=== PATIENT | male | born 1945 | race Caucasian/White ===

== ENCOUNTER → 2019-09-10 | Outpatient (CLI) | payer MEDICARE, BC ==
[2019-09-10 09:04] LABS: ALBUMIN 3.9 g/dL (3.4-4.8); POTASSIUM 4.4 mmol/L (3.5-5.1)
[2019-09-10 09:05] LABS: CALCIUM 9.6 mg/dL (8.3-10.5)
[2019-09-10 09:07] LABS: TOTAL PROTEIN 6.8 g/dL (6.2-8.1)
[2019-09-10 09:09] LABS: TOTAL BILIRUBIN 0.5 mg/dL (0.2-1.2)
== END ==
LOC: LAB 08:38
PROVIDERS: Family Medicine
DX: E11.9 Type 2 diabetes mellitus without complications (principal); I71.9 Aortic aneurysm of unspecified site, without rupture; I10 Essential (primary) hypertension; E78.00 Pure hypercholesterolemia, unspecified

== ENCOUNTER 2019-12-07 09:40 | Emergency (ER) | payer MEDICARE, BC ==
[~2019-12-07] VITALS: Wt 129.8 kg
[2019-12-07] MEDS ORDERED: ATORVASTATIN CA80 MG PO (09:48)
[2019-12-07] MEDS ORDERED: PRILOSEC 20MG20 MG PO (09:48)
[2019-12-07] MEDS ORDERED: CARVEDILOL12.5 MG PO (09:48)
[2019-12-07] MEDS ORDERED: AMLODIPINE BESYL5 MG PO (09:49)
[2019-12-07] MEDS ORDERED: ELIQUIS5 MG PO (09:49)
[2019-12-07] MEDS ORDERED: GLUCOPHAGE PO (09:49)
[2019-12-07 10:05] LABS: EOS # 0.1 (0.04-0.40); EOS % 1.6 % (0.0-4.0); HEMATOCRIT 44.4 % (42.0-52.0); HEMOGLOBIN 14.6 g/dL (13.5-18.0); LYMPH# 1.8 (1.50-4.00); MEAN CELL VOLUME 93 fl (78-100); MEAN CORPUSCULAR HEMOGLOBIN 31 pg (27-31); MEAN CORPUSCULAR HGB CONC 33 g/dL (33-37); MEAN PLATELET VOLUME 11.3 fl (7.4-10.4); MONO # 0.8 (0.20-0.80); NEU # 6.2 (1.40-6.50); PLATELET COUNT 173 K/mm3 (130-400); RED BLOOD COUNT 4.79 M/mm3 (4.20-5.60); RED CELL DISTRIBUTION WIDTH 14.5 % (11.5-14.5)
[2019-12-07 10:12] LABS: ALBUMIN 3.7 g/dL (3.4-4.8); POTASSIUM 3.9 mmol/L (3.5-5.1); SODIUM 139 mmol/L (136-145)
[2019-12-07 10:13] LABS: CALCIUM 9.4 mg/dL (8.3-10.5)
[2019-12-07 10:14] LABS: GLUCOSE 137 mg/dL (75-110); TOTAL PROTEIN 6.6 g/dL (6.2-8.1)
[2019-12-07 10:15] LABS: CARBON DIOXIDE 22 mmol/L (23-31)
[2019-12-07 10:16] LABS: TOTAL BILIRUBIN 0.7 mg/dL (0.2-1.2)
[2019-12-07 10:20] LABS: AST-SGOT 16 U/L (5-34)
[2019-12-07 10:21] LABS: ALT/SGPT 16 U/L (0-55)
[2019-12-07 10:48] LABS: TROPONIN-I < 0.03 ng/mL (<0.030)
[2019-12-07 17:23] LABS: HEMATOCRIT 43.4 % (42.0-52.0); HEMOGLOBIN 14.3 g/dL (13.5-18.0)
[2019-12-07 18:22] VITALS: BP 160/77
== END 2019-12-07 18:21 | disposition home or self-care (01) ==
LOC: ED 09:40
PROVIDERS: Nurse Practitioner Primary Care; Physician Assistant
DX: I95.1 Orthostatic hypotension (principal); E86.0 Dehydration; K92.1 Melena; E11.9 Type 2 diabetes mellitus without complications; I48.92 Unspecified atrial flutter; K21.9 Gastro-esophageal reflux disease without esophagitis; G47.33 Obstructive sleep apnea (adult) (pediatric); Z79.84 Long term (current) use of oral hypoglycemic drugs; Z86.79 Personal history of other diseases of the circulatory system
CPT/HCPCS: J7030

== ENCOUNTER 2020-05-30 06:37 | Emergency (ER) | payer MEDICARE, BC ==
[~2020-05-30] VITALS: Ht 190.5 cm; Wt 125.0 kg
[~2020-05-30 06:37] MED LIST: AMLODIPINE BESYL5 MG PO; ATORVASTATIN CA80 MG PO; CARVEDILOL12.5 MG PO; ELIQUIS5 MG PO; GLUCOPHAGE PO; PRILOSEC 20MG20 MG PO
[2020-05-30 07:37] LABS: HEMATOCRIT 39.4 % (42.0-52.0); HEMOGLOBIN 12.9 g/dL (13.5-18.0); MEAN CELL VOLUME 94 fl (78-100); MEAN CORPUSCULAR HEMOGLOBIN 31 pg (27-31); MEAN CORPUSCULAR HGB CONC 33 g/dL (33-37); MEAN PLATELET VOLUME 11.1 fl (7.4-10.4); PLATELET COUNT 164 K/mm3 (130-400); RED BLOOD COUNT 4.18 M/mm3 (4.20-5.60); RED CELL DISTRIBUTION WIDTH 14.8 % (11.5-14.5); WHITE BLOOD COUNT 8.4 K/mm3 (4.8-10.8)
[2020-05-30 07:43] LABS: ALBUMIN 3.6 g/dL (3.4-4.8)
[2020-05-30 07:44] LABS: POTASSIUM 3.7 mmol/L (3.5-5.1)
[2020-05-30 07:45] LABS: CALCIUM 9.2 mg/dL (8.3-10.5)
[2020-05-30 07:46] LABS: TOTAL PROTEIN 6.3 g/dL (6.2-8.1)
[2020-05-30 07:48] LABS: TOTAL BILIRUBIN 0.9 mg/dL (0.2-1.2)
[2020-05-30 07:54] LABS: LYMPHOCYTE 14 % (20-51); MONOCYTE 14 % (3-10); NEUTROPHILS 70 % (42-75)
[2020-05-30 07:59] LABS: TROPONIN-I 0.04 ng/mL (<0.030)
[2020-05-30 10:39] VITALS: BP 136/96
== END 2020-05-30 10:45 | disposition short-term general hospital (02) ==
LOC: ED 06:37
PROVIDERS: Family Medicine
DX: J93.9 Pneumothorax, unspecified (principal); I25.10 Atherosclerotic heart disease of native coronary artery without angina pectoris; I44.2 Atrioventricular block, complete; E11.9 Type 2 diabetes mellitus without complications; I10 Essential (primary) hypertension; Z79.84 Long term (current) use of oral hypoglycemic drugs; Z95.0 Presence of cardiac pacemaker; Z96.653 Presence of artificial knee joint, bilateral; Z88.0 Allergy status to penicillin; Z88.8 Allergy status to other drugs, medicaments and biological substances
CPT/HCPCS: J1940

== ENCOUNTER 2020-06-15 22:13 | Emergency (ER) | payer MEDICARE, BC ==
[2020-06-15 22:52] LABS: EOS # 0.2 (0.04-0.40); EOS % 2.5 % (0.0-4.0); HEMOGLOBIN 13.9 g/dL (13.5-18.0); LYMPH# 2.1 (1.50-4.00); MEAN CELL VOLUME 95 fl (78-100); MEAN CORPUSCULAR HEMOGLOBIN 31 pg (27-31); MEAN CORPUSCULAR HGB CONC 32 g/dL (33-37); MEAN PLATELET VOLUME 11.3 fl (7.4-10.4); MONO # 0.8 (0.20-0.80); NEU # 4.1 (1.40-6.50); PLATELET COUNT 284 K/mm3 (130-400); RED BLOOD COUNT 4.53 M/mm3 (4.20-5.60); RED CELL DISTRIBUTION WIDTH 14.3 % (11.5-14.5); WHITE BLOOD COUNT 7.2 K/mm3 (4.8-10.8)
[2020-06-15 23:00] LABS: ALBUMIN 3.6 g/dL (3.4-4.8)
[2020-06-15 23:01] LABS: POTASSIUM 3.9 mmol/L (3.5-5.1)
[2020-06-15] MEDS ORDERED: ZESTRIL40 M1 PO (23:01)
[2020-06-15 23:02] LABS: CALCIUM 9.2 mg/dL (8.3-10.5)
[2020-06-15] MEDS ORDERED: TIMOLOL 0.5% OP10 ML OU (23:02)
[2020-06-15 23:03] LABS: TOTAL PROTEIN 6.8 g/dL (6.2-8.1)
[2020-06-15] MEDS ORDERED: FELODIPINE5 MG PO (23:04)
[2020-06-15 23:05] LABS: TOTAL BILIRUBIN 0.3 mg/dL (0.2-1.2)
[2020-06-16 01:04] LABS: URINE COLOR YELLOW
[2020-06-16 01:05] LABS: URINE APPEARANCE CLOUDY; URINE BILIRUBIN NEGATIVE (NEGATIVE); URINE BLOOD 50 ery/uL (NEGATIVE); URINE GLUCOSE NEGATIVE (NEGATIVE); URINE KETONE NEGATIVE (NEGATIVE); URINE LEUKOCYTE ESTERASE 1+ (NEGATIVE); URINE NITRATE NEGATIVE (NEGATIVE); URINE PROTEIN(semi-quant) TRACE mg/dL (NEGATIVE); URINE UROBILINOGEN NORMAL (NORMAL); URINE WBC 31-50 /hpf (0-3)
[2020-06-16] MEDS ORDERED: MACROBID 100 M100 MG PO (01:28)
[2020-06-16 01:36] VITALS: BP 128/82
== END 2020-06-16 01:36 | disposition home or self-care (01) ==
LOC: ED 22:13
PROVIDERS: Family Medicine
DX: I10 Essential (primary) hypertension (principal); N39.0 Urinary tract infection, site not specified; E11.9 Type 2 diabetes mellitus without complications; Z79.84 Long term (current) use of oral hypoglycemic drugs; Z95.0 Presence of cardiac pacemaker; Z96.653 Presence of artificial knee joint, bilateral

== ENCOUNTER → 2020-06-23 | Outpatient (CLI) | payer MEDICARE, BC ==
[2020-06-16 01:36] VITALS: BP 128/82
[~2020-06-23] MED LIST changes: +FELODIPINE5 MG PO; +MACROBID 100 M100 MG PO; +TIMOLOL 0.5% OP10 ML OU; +ZESTRIL40 M1 PO
[2020-06-23 17:08] LABS: URINE APPEARANCE CLEAR; URINE BILIRUBIN NEGATIVE (NEGATIVE); URINE BLOOD 50 ery/uL (NEGATIVE); URINE COLOR LIGHT YELLOW; URINE GLUCOSE NEGATIVE (NEGATIVE); URINE KETONE NEGATIVE (NEGATIVE); URINE LEUKOCYTE ESTERASE 1+ (NEGATIVE); URINE NITRATE NEGATIVE (NEGATIVE); URINE PROTEIN(semi-quant) TRACE mg/dL (NEGATIVE); URINE UROBILINOGEN NORMAL (NORMAL)
== END ==
LOC: LAB 16:25
PROVIDERS: Family Medicine
DX: N39.0 Urinary tract infection, site not specified (principal); R82.89 Other abnormal findings on cytological and histological examination of urine; Z87.442 Personal history of urinary calculi

== ENCOUNTER → 2020-10-17 | Outpatient (CLI) | payer MEDICARE, BC | LOC: LAB 09:10 | DX: Z12.5 Encounter for screening for malignant neoplasm of prostate (principal); R35.1 Nocturia ==

== ENCOUNTER → 2021-03-20 | Day surgery (SDC) | payer MEDICARE, BC | END | disposition home or self-care (01) | LOC: MSO 08:31 | DX: Z12.11 Encounter for screening for malignant neoplasm of colon (principal); K63.5 Polyp of colon; I49.9 Cardiac arrhythmia, unspecified; G47.33 Obstructive sleep apnea (adult) (pediatric); J45.909 Unspecified asthma, uncomplicated; Z95.0 Presence of cardiac pacemaker; K21.9 Gastro-esophageal reflux disease without esophagitis; E11.9 Type 2 diabetes mellitus without complications; E66.9 Obesity, unspecified; I44.7 Left bundle-branch block, unspecified; M19.90 Unspecified osteoarthritis, unspecified site; I48.92 Unspecified atrial flutter; Z79.01 Long term (current) use of anticoagulants; Z79.84 Long term (current) use of oral hypoglycemic drugs; Z79.891 Long term (current) use of opiate analgesic | CPT/HCPCS: 00811; J2704; J7120 ==

== ENCOUNTER → 2021-03-27 | Outpatient (CLI) | payer MEDICARE, BC | LOC: LAB 12:00 | DX: N39.0 Urinary tract infection, site not specified (principal) ==

== ENCOUNTER → 2021-03-30 | Outpatient (CLI) | payer MEDICARE, BC ==
[2021-03-30 11:42] LABS: POTASSIUM 4.2 mmol/L (3.5-5.1)
[2021-03-30 11:44] LABS: CALCIUM 9.3 mg/dL (8.3-10.5)
[2021-03-30 11:45] LABS: TOTAL PROTEIN 6.8 g/dL (6.2-8.1)
[2021-03-30 11:47] LABS: TOTAL BILIRUBIN 0.6 mg/dL (0.2-1.2)
== END ==
LOC: LAB 08:52
PROVIDERS: Family Medicine
DX: Z12.5 Encounter for screening for malignant neoplasm of prostate (principal); E11.9 Type 2 diabetes mellitus without complications; I10 Essential (primary) hypertension

== ENCOUNTER → 2021-07-11 | Outpatient (CLI) | payer MEDICARE, BC | LOC: LAB 17:22 | DX: R31.9 Hematuria, unspecified (principal) ==

== ENCOUNTER → 2021-11-08 | Outpatient (CLI) | payer MEDICARE, BC | LOC: LAB 11:11 | DX: Z20.822 Contact with and (suspected) exposure to COVID-19 (principal) ==

== ENCOUNTER 2022-02-06 08:45 | Outpatient (RCR) | payer MEDICARE, BC | END 2022-03-01 19:36 | disposition home or self-care (01) | LOC: OPPGERO 08:45 | DX: F33.1 Major depressive disorder, recurrent, moderate (principal); F41.8 Other specified anxiety disorders; Z79.899 Other long term (current) drug therapy ==

== ENCOUNTER 2022-03-05 12:17 | Outpatient (RCR) | payer MEDICARE, BC | END 2022-03-30 16:11 | disposition still patient (30) | LOC: OPPGERO 12:17 | DX: F33.9 Major depressive disorder, recurrent, unspecified (principal); I10 Essential (primary) hypertension; E11.9 Type 2 diabetes mellitus without complications; E66.9 Obesity, unspecified; Z96.653 Presence of artificial knee joint, bilateral ==

== ENCOUNTER 2022-04-02 10:14 | Outpatient (RCR) | payer MEDICARE, BC | END 2022-05-01 20:57 | disposition home or self-care (01) | LOC: OPPGERO 10:14 | DX: F33.1 Major depressive disorder, recurrent, moderate (principal); I10 Essential (primary) hypertension; E11.9 Type 2 diabetes mellitus without complications; Z96.651 Presence of right artificial knee joint; Z96.652 Presence of left artificial knee joint ==

== ENCOUNTER → 2022-04-02 | Outpatient (CLI) | payer MEDICARE, BC ==
[2022-04-02 11:14] LABS: ALBUMIN 3.8 g/dL (3.4-4.8); POTASSIUM 4.2 mmol/L (3.5-5.1)
[2022-04-02 11:15] LABS: CALCIUM 9.4 mg/dL (8.3-10.5)
[2022-04-02 11:16] LABS: TOTAL PROTEIN 6.4 g/dL (6.2-8.1)
[2022-04-02 11:18] LABS: TOTAL BILIRUBIN 0.5 mg/dL (0.2-1.2)
== END ==
LOC: LAB 08:03
PROVIDERS: Family Medicine
DX: Z12.5 Encounter for screening for malignant neoplasm of prostate (principal); E11.9 Type 2 diabetes mellitus without complications; I10 Essential (primary) hypertension; F41.8 Other specified anxiety disorders; G47.33 Obstructive sleep apnea (adult) (pediatric)

== ENCOUNTER → 2022-04-11 | Outpatient (CLI) | payer MEDICARE, BC | LOC: LAB 09:08 | DX: Z00.00 Encounter for general adult medical examination without abnormal findings (principal); E11.21 Type 2 diabetes mellitus with diabetic nephropathy; K21.9 Gastro-esophageal reflux disease without esophagitis; I10 Essential (primary) hypertension; F41.8 Other specified anxiety disorders; G47.33 Obstructive sleep apnea (adult) (pediatric); E11.9 Type 2 diabetes mellitus without complications; Z87.442 Personal history of urinary calculi ==

== ENCOUNTER 2022-05-02 10:33 | Outpatient (RCR) | payer MEDICARE, BC | END 2022-05-31 07:31 | disposition home or self-care (01) | LOC: OPPGERO 10:33 | DX: F33.9 Major depressive disorder, recurrent, unspecified (principal); F41.8 Other specified anxiety disorders; I10 Essential (primary) hypertension; E11.39 Type 2 diabetes mellitus with other diabetic ophthalmic complication; H42 Glaucoma in diseases classified elsewhere; E66.9 Obesity, unspecified; Z95.0 Presence of cardiac pacemaker; Z98.890 Other specified postprocedural states; Z96.653 Presence of artificial knee joint, bilateral ==

== ENCOUNTER 2022-06-01 07:52 | Outpatient (RCR) | payer MEDICARE, BC | END 2022-06-29 14:27 | disposition still patient (30) | LOC: OPPGERO 07:52 | DX: F33.1 Major depressive disorder, recurrent, moderate (principal); F41.8 Other specified anxiety disorders; I10 Essential (primary) hypertension; E11.9 Type 2 diabetes mellitus without complications; E66.9 Obesity, unspecified; Z98.890 Other specified postprocedural states ==

== ENCOUNTER 2022-07-02 09:35 | Outpatient (RCR) | payer MEDICARE, BC | END 2022-08-01 16:41 | disposition home or self-care (01) | LOC: OPPGERO 09:35 | DX: F33.1 Major depressive disorder, recurrent, moderate (principal); F41.8 Other specified anxiety disorders; I10 Essential (primary) hypertension; E11.9 Type 2 diabetes mellitus without complications; E66.9 Obesity, unspecified ==

== ENCOUNTER → 2023-12-03 | Outpatient (CLI) | payer MEDICARE, BC ==
[~2023-12-03] MED LIST changes: +CEPHALEXIN500 M1 PO; +FLOMAX0.4 MG PO
== END ==
LOC: RAD 07:53
DX: K86.2 Cyst of pancreas (principal); N28.1 Cyst of kidney, acquired
CPT/HCPCS: Q9967

== ENCOUNTER → 2024-05-15 | Outpatient (CLI) | payer MEDICARE, BC ==
[2024-05-15 18:35] LABS: BASO # 0.02 K/mm3 (0.02-0.10); EOS # 0.16 K/mm3 (0.04-0.40); HEMATOCRIT 42.8 % (42.0-52.0); LYMPH# 1.65 K/mm3 (1.50-4.00); MEAN CELL VOLUME 96 fl (78-100); MEAN CORPUSCULAR HEMOGLOBIN 31 pg (27-31); MEAN CORPUSCULAR HGB CONC 33 g/dL (33-37); MEAN PLATELET VOLUME 11.1 fl (7.4-10.4); MONO # 0.66 K/mm3 (0.20-0.80); PLATELET COUNT 162 K/mm3 (130-400); RED BLOOD COUNT 4.46 M/mm3 (4.20-5.60); RED CELL DISTRIBUTION WIDTH 13.5 % (11.5-14.5); WHITE BLOOD COUNT 5.4 K/mm3 (4.8-10.8)
[2024-05-15 18:39] LABS: URINE APPEARANCE TURBID (CLEAR); URINE BILIRUBIN 2+ (NEGATIVE); URINE GLUCOSE NEGATIVE (NEGATIVE); URINE KETONE TRACE (NEGATIVE); URINE NITRATE NEGATIVE (NEGATIVE); URINE PROTEIN(semi-quant) 3+ (NEGATIVE)
[2024-05-15 18:40] LABS: URINE BLOOD 3+ (NEGATIVE); URINE LEUKOCYTE ESTERASE 3+ (NEGATIVE)
[2024-05-15 18:47] LABS: URINE COLOR RED (YELLOW)
== END ==
LOC: LAB 18:17
PROVIDERS: Nurse Practitioner Family
DX: R31.9 Hematuria, unspecified (principal)

== ENCOUNTER → 2024-08-07 | Outpatient (CLI) | payer MEDICARE, BC ==
[2024-08-07 10:41] LABS: CALCIUM 9.3 mg/dL (8.3-10.5)
== END ==
LOC: LAB 10:19
PROVIDERS: Family Medicine
DX: I10 Essential (primary) hypertension (principal)

== ENCOUNTER → 2024-11-06 | Outpatient (CLI) | payer MEDICARE, BC ==
[2024-11-06 12:36] LABS: CALCIUM 9.5 mg/dL (8.3-10.5)
== END ==
LOC: LAB 12:02
PROVIDERS: Family Medicine
DX: E11.22 Type 2 diabetes mellitus with diabetic chronic kidney disease (principal); I12.9 Hypertensive chronic kidney disease with stage 1 through stage 4 chronic kidney disease, or unspecified chronic kidney disease; N18.9 Chronic kidney disease, unspecified